=== PATIENT | male | born 1980 | race Caucasian/White ===

== ENCOUNTER 2024-07-26 10:34 | Day surgery (SDC) | payer BC ==
[~2024-07-26] VITALS: Ht 193 cm; Wt 105.1 kg
[~2024-07-26 10:34] MED LIST: LEXA1TAB2 PO; LIDOCAINE 2% 100MG/5ML SDV (FOR ANES.) As Ordered ONE; PROP60CA PO; SIMV20TA22 PO; THERTAB52 PO; VITA100093 PO; propofoL 200 MG/20 ML VIAL As Ordered ONE
[2024-07-26 12:11] VITALS: TEMP 99.1
[2024-07-26 12:27] VITALS: BP 112/71; O2SAT 98
== END 2024-07-26 12:39 | disposition home or self-care (01) ==
LOC: M OPP 10:34
PROVIDERS: ATTEND Surgery
DX: K63.5 Polyp of colon (principal); K57.30 Diverticulosis of large intestine without perforation or abscess without bleeding; K64.1 Second degree hemorrhoids; K92.1 Melena; Z79.899 Other long term (current) drug therapy